=== PATIENT | female | born 1990 | race Caucasian/White ===

== ENCOUNTER → 2020-08-13 | Outpatient (CLI) | payer BC ==
[~2020-08-13] MED LIST: ACHD5005 PO; CEPH500C PO; CYCL10TA9 PO; IBP600T1 PO; METR500T PO; PREN-115 PO; SERT50TA PO
[2020-08-13 16:48] LABS: BASOPHILS % (AUTO) 0 % (0-10); EOSINOPHILS # (AUTO) 0.1 10^3/uL (0.0-0.3); EOSINOPHILS % (AUTO) 1 % (0-10); HEMATOCRIT 33 % (35-52); HEMOGLOBIN 11.3 g/dL (11.5-16.0); LYMPHOCYTES # (AUTO) 1.9 10^3/uL (1.0-4.0); LYMPHOCYTES % (AUTO) 12 % (12-44); MEAN CORPUSCULAR HEMOGLOBIN 31 pg (25-34); MEAN CORPUSCULAR HGB CONC 34 g/dL (32-36); MEAN CORPUSCULAR VOLUME 91 fL (80-99); MEAN PLATELET VOLUME 9.5 fL (9.0-12.2); MONOCYTES # (AUTO) 1.2 10^3/uL (0.0-1.0); MONOCYTES % (AUTO) 8 % (0-12); NEUTROPHILS % (AUTO) 78 % (42-75); PLATELET COUNT 280 10^3/uL (130-400); WHITE BLOOD COUNT 15.4 10^3/uL (4.3-11.0)
[2020-08-13 17:03] LABS: ALBUMIN 3.4 GM/DL (3.2-4.5); CHLORIDE 103 MMOL/L (98-107); POTASSIUM 3.8 MMOL/L (3.6-5.0); SODIUM 133 MMOL/L (135-145)
[2020-08-13 17:05] LABS: CALCIUM 9.4 MG/DL (8.5-10.1)
[2020-08-13 17:06] LABS: GLUCOSE 79 MG/DL (70-105); TOTAL PROTEIN 6.7 GM/DL (6.4-8.2)
[2020-08-13 17:07] LABS: CARBON DIOXIDE 20 MMOL/L (21-32)
[2020-08-13 17:08] LABS: BILIRUBIN,TOTAL 0.2 MG/DL (0.1-1.0)
[2020-08-13 17:09] LABS: ALKALINE PHOSPHATASE 91 U/L (40-136); GFR ESTIMATED > 60
[2020-08-13 17:10] LABS: BUN/CREATININE RATIO 12
[2020-08-13 17:12] LABS: ALANINE AMINOTRANSFERASE 8 U/L (0-55); URIC ACID 4.7 MG/DL (2.6-7.2)
[2020-08-13 17:20] LABS: BAND NEUTROPHILS 3 %; BASOPHILS % (MANUAL) 0 %; EOSINOPHILS % (MANUAL) 0 %; LYMPHOCYTES % (MANUAL) 11 %; MONOCYTES % (MANUAL) 4 %; NEUTROPHILS % (MANUAL) 82 %
[2020-08-13 17:36] LABS: URINE CREATININE FOR RATIO 39 MG/DL (30-125); URINE PROTEIN FOR RATIO ONLY < 6 MG/DL (6-12)
== END ==
LOC: LAB 16:26
PROVIDERS: ATTEND Family Medicine
DX: O16.3 Unspecified maternal hypertension, third trimester (principal); Z3A.00 Weeks of gestation of pregnancy not specified
CPT/HCPCS: 36415; 80053; 82570; 83615; 84156; 84550; 85007; 85027

== ENCOUNTER 2020-08-21 17:57 | Inpatient (IN) | payer BC ==
[~2020-08-21] VITALS: Ht 180.3 cm; Wt 123.4 kg
--- NOTE | 2020-08-21 18:02 | NUR ---
JOSTIN FRAGOSO presented to unit via ambulation from ED, accompanied by , with c/o INDUCTION. Pt. weighed, gowned, voided, and to bed. EFHM and TOCO applied, VS taken. Pt. oriented to bed controls, call light, TV, heat, and A/C controls.
[2020-08-21 18:20] VITALS: BP 139/79
[2020-08-21] MEDS ORDERED: MINERAL OIL CONCENTRATE 99.9% 15 ML UDC TOP PRN (18:30)
--- NOTE | 2020-08-21 18:44 | NUR ---
admission paperwork completed.
[2020-08-21] MEDS: D5 LR IV SOLUTION 1,000 ML IV SCH (18:52)
[2020-08-21 19:02] LABS: BASOPHILS % (AUTO) 0 % (0-10); EOSINOPHILS # (AUTO) 0.1 10^3/uL (0.0-0.3); EOSINOPHILS % (AUTO) 1 % (0-10); HEMATOCRIT 34 % (35-52); HEMOGLOBIN 11.5 g/dL (11.5-16.0); LYMPHOCYTES # (AUTO) 1.7 10^3/uL (1.0-4.0); LYMPHOCYTES % (AUTO) 12 % (12-44); MEAN CORPUSCULAR HEMOGLOBIN 31 pg (25-34); MEAN CORPUSCULAR HGB CONC 34 g/dL (32-36); MEAN CORPUSCULAR VOLUME 91 fL (80-99); MEAN PLATELET VOLUME 9.6 fL (9.0-12.2); MONOCYTES # (AUTO) 1.2 10^3/uL (0.0-1.0); MONOCYTES % (AUTO) 8 % (0-12); NEUTROPHILS # (AUTO) 11.7 10^3/uL (1.8-7.8); NEUTROPHILS % (AUTO) 78 % (42-75); PLATELET COUNT 292 10^3/uL (130-400); WHITE BLOOD COUNT 14.9 10^3/uL (4.3-11.0)
[2020-08-21 19:29] LABS: BAND NEUTROPHILS 1 %; LYMPHOCYTES % (MANUAL) 15 %; MONOCYTES % (MANUAL) 6 %; NEUTROPHILS % (MANUAL) 78 %
[2020-08-21 19:30] VITALS: BP 108/63
[2020-08-21 19:31] LABS: RBC MORPH NORMAL
[2020-08-21] MEDS ORDERED: LACTATED RINGERS 1,000 ML IV SCH (19:55)
[2020-08-21 20:00] VITALS: BP 128/72
[2020-08-21] MEDS ORDERED: MISOPROSTOL 100 MCG (CYTOTEC) TAB PO NR (20:00)
[2020-08-21 21:15] VITALS: BP 134/65
[2020-08-21 22:00] VITALS: BP 127/74
[2020-08-21] MEDS ORDERED: CATHETER FLUSH 10 ML SYR IV SCH (22:00)
[2020-08-21 23:00] VITALS: BP 120/70
[2020-08-22] VITALS (57 sets, daily range): BP systolic 97–163; BP diastolic 53–106
[2020-08-22] MEDS ORDERED: MISOPROSTOL 100 MCG (CYTOTEC) TAB PO SCH
[2020-08-22] MEDS: D5 LR IV SOLUTION 1,000 ML IV SCH ×2 (02:52→11:10)
[2020-08-22] MEDS ORDERED: OXYTOCIN PRE-MIX DRIP 500 ML IV SCH ×2 (07:15→16:00)
--- NOTE | 2020-08-22 08:12 | NUR ---
called to check on pt. update given.
--- NOTE | 2020-08-22 08:40 | NUR ---
EVANGELIST Kyle [facility] Marylin, SRNA here for epidural placement. Procedure explained, consent reviewed and signed by anesthesia. Questions answered to patient's satisfaction. Time out taken to verify correct patient/procedure. 0901- Patient up to side of bed, assisted into sitting position. Betadine prep done x3 and sterile drape applied. 0909- Local done, see anesthesia record. 0918-Test dose given, see anesthesia record for drug and dosage. Epidural catheter secured in place. Epidural placement complete. 0922-Assisted back into bed, monitors adjusted. Epidural dosed, see anesthesia record. Epidural of Sufenta/Fentanyl @12cc/hr stated per pump. Patient tolerated procedure well.
[2020-08-22] MEDS ORDERED: fentaNYL 2 mcg/ml BUPIVA 0.125 100 ML ONE (08:51)
[2020-08-22] MEDS ORDERED: fentaNYL INJECTION 100 MCG/2 ML AMP ONE (08:54)
[2020-08-22] MEDS ORDERED: BUPIVACAINE 0.25% 30 ML (SENSORCAINE) VIAL ONE (08:54)
[2020-08-22] MEDS ORDERED: EPIDURAL (fentaNYL 2 MCG/ML BUPIVA 0.125%)100 ML BAG EPI PRN (10:00)
[2020-08-22] MEDS ORDERED: LACTATED RINGERS 1,000 ML IV SCH (10:00)
[2020-08-22] MEDS ORDERED: METOCLOPRAMIDE INJ 10 MG/2 ML (REGLAN) IV PRN (10:00)
[2020-08-22] MEDS ORDERED: NALOXONE 0.4 MG/ML 1 ML (NARCAN) VIAL IV PRN ×2 (10:00)
[2020-08-22] MEDS ORDERED: diphenhydrAMINE 50 MG/ML INJ (BENADRYL) IV PRN (10:00)
[2020-08-22] MEDS ORDERED: ONDANSETRON 4 MG/2 ML (SDV) Z0FRAN IV PRN (10:00)
--- NOTE | 2020-08-22 15:06 | NUR ---
was called with SVE update.
[2020-08-22] MEDS ORDERED: LIDOCAINE/EPI 2% 1:200,00 (XYLOCAINE) 10 ML VIAL ONE (15:09)
--- NOTE | 2020-08-22 15:51 | OB Labor & Delivery Record ---
Vag Delivery Note Vag Delivery Note Date of Delivery: 08/22/20 Preoperative Diagnosis: Sofía Mccartney is a (29 /Para / , Gestational Age (wks)38with [] Postoperative Diagnosis: Same Surgeon: MAHI WHARTON Transit Specialist: [] Anesthesia: [] Delivery Type: [] Findings: [] Viable [] , apgars [], weight [] Lacerations: Intact placenta with 3 vessel cord. No nuchal cord, body cord or shoulder dystocia Cytotec 800 mcg placed for hemorrhage prophylaxis Estimated Blood Loss: [] ml Complications: None Condition: Stable Description of Procedure: The patient is a 29 year old female who presented []. She was admitted and informed consent was obtained. Her labor course was remarkable for [] She progressed to complete dilatation and began to push. She was then set up for delivery. The infant's head was delivered atraumatically in the [] position. The shoulders and remainder of the infant's body were then delivered without difficulty. Upon delivery, the head was held below the level of the perineum and the mouth and nares were bulb suctioned. The cord was doubly clamped and cut and the infant was handed off to the pediatric staff. An intact placenta with 3-vessel cord delivered via Taran and there was found to be minimal bleeding.~ Vigorous fundal massage was performed and the fundus was found to be firm. IV oxytocin was given. Examination of the vagina and perineum revealed a [] laceration repaired in the usual fashion with 3-0 vicryl suture. Following the repair, sponge, instrument and needle counts were correct. Mom and baby were both in stable condition in the labor suite. Vitals - Labs Vital Signs - I&O Vital Signs Date Time Temp Pulse Resp B/P (MAP) Pulse Ox O2 Delivery O2 Flow Rate FiO2 08/22/20 14:15 93 18 143/77 (99) 97 Room Air 08/22/20 14:00 91 18 124/74 (91) 97 Room Air 08/22/20 13:45 89 18 120/72 (88) 97 Room Air 08/22/20 13:30 94 18 120/69 (86) 97 Room Air 08/22/20 13:15 99 18 115/59 (77) 97 Room Air 08/22/20 13:00 97 18 113/57 (75) 97 Room Air 08/22/20 12:45 92 18 114/60 (78) 96 Room Air 08/22/20 12:30 93 18 119/63 (81) 97 Room Air 08/22/20 12:15 36.7 88 18 122/58 (79) 98 Room Air 08/22/20 12:00 90 18 110/62 (78) 97 Room Air 08/22/20 11:45 87 18 119/68 (85) 97 Room Air 08/22/20 11:30 93 18 116/58 (77) 98 Room Air 08/22/20 11:15 89 18 124/64 (84) 97 Room Air 08/22/20 11:00 92 18 109/70 (83) 96 Room Air 08/22/20 10:45 90 18 119/73 (88) 96 Room Air 08/22/20 10:30 95 18 121/67 (85) 96 Room Air 08/22/20 10:15 91 18 116/56 (76) 96 Room Air 08/22/20 10:00 93 18 121/71 (88) 97 Room Air 08/22/20 09:45 94 18 163/106 (125) 97 Room Air 08/22/20 09:40 107 18 134/80 (98) 96 Room Air 08/22/20 09:35 107 18 127/66 (86) 96 Room Air 08/22/20 09:30 101 18 128/72 (90) 97 Room Air 08/22/20 09:25 107 18 129/65 (86) 97 Room Air 08/22/20 09:20 112 18 131/72 (91) 98 Room Air 08/22/20 09:15 102 18 128/72 (90) 97 Room Air 08/22/20 09:10 97 18 126/69 (88) 98 Room Air 08/22/20 09:05 102 18 128/73 (91) 98 Room Air 08/22/20 09:00 92 18 118/66 (83) Room Air 08/22/20 08:45 96 18 131/66 (87) Room Air 08/22/20 08:30 36.8 89 18 122/65 (84) Room Air 08/22/20 08:15 18 Room Air 08/22/20 08:00 83 18 125/70 (88) Room Air 08/22/20 07:40 83 18 126/82 (97) Room Air 08/22/20 07:25 86 18 122/86 (98) Room Air 08/22/20 07:00 36.5 86 18 113/70 (84) Room Air 08/22/20 06:00 85 18 137/72 (93) Room Air 08/22/20 05:00 80 18 108/57 (74) Room Air 08/22/20 04:00 80 18 133/88 (103) Room Air 08/22/20 03:00 85 18 133/88 (103) Room Air 08/22/20 02:00 36.6 81 18 134/74 (94) Room Air 08/22/20 01:00 84 18 124/75 (91) Room Air 08/22/20 00:00 93 18 133/76 (95) Room Air 08/21/20 23:00 84 18 120/70 (87) 08/21/20 22:00 36.5 91 18 127/74 (91) 08/21/20 21:15 87 18 134/65 (88) 08/21/20 20:00 94 18 128/72 (90) 08/21/20 19:30 94 18 108/63 (78) 08/21/20 18:20 36.2 119 18 97 Room Air I & O 08/22/20 07:00 Intake Total 2000 ml Balance 2000 ml Labs Laboratory Tests 08/21/20 18:50: White Blood Count 14.9H, Red Blood Count 3.74L, Hemoglobin 11.5, Hematocrit 34L, Mean Corpuscular Volume 91, Mean Corpuscular Hemoglobin 31, Mean Corpuscular Hemoglobin Concent 34, Red Cell Distribution Width 13.6, Platelet Count 292, Mean Platelet Volume 9.6, Immature Granulocyte % (Auto) 1, Neutrophils (%) (Auto) 78H, Lymphocytes (%) (Auto) 12, Monocytes (%) (Auto) 8, Eosinophils (%) (Auto) 1, Basophils (%) (Auto) 0, Neutrophils # (Auto) 11.7H, Lymphocytes # (Auto) 1.7, Monocytes # (Auto) 1.2H, Eosinophils # (Auto) 0.1, Basophils # (Auto) 0.0, Immature Granulocyte # (Auto) 0.2H, Neutrophils % (Manual) 78, Lymphocytes % (Manual) 15, Monocytes % (Manual) 6, Band Neutrophils 1, Blood Morphology Comment NORMAL 08/21/20 20:00: Coronavirus (COVID-19)(PCR) Negative MAHI WHARTON MD Aug 22, 2020 15:51
--- NOTE | 2020-08-22 15:51 | History & Physical-OB ---
OB - Chief Complaint & HPI Date/Time Date of Admission: Date of Admission: Aug 21, 2020 at 20:20 Chief Complaint/History Expected Date of Delivery: Aug 30, 2020 Gestational Age in Weeks: 38 Gestational Age in Days: 6 Allergies and Home Medications Allergies Coded Allergies: No Known Drug Allergies (Unverified , 10/18/12) Home Medications Cyclobenzaprine Hcl 10 Mg Tablet, 10 MG PO TID, (Reported) Hydrocodone Bit/Acetaminophen 1 Tab Tablet, 1 TAB PO Q6H PRN, (Reported) Ibuprofen 600 Mg Tab, 600 MG PO Q6H PRN, (Reported) OB - History Obstetrical History Hx Termination: No Delivery History Hx Section: No Hx Vaginal Delivery Post C-Sec: No Hx Blood Disorders: No Adverse Rxn to Tranfusion: No Social History/Family History HIV/AIDS: No Recent Infectious Disease Expo: No Sexually Transmitted Disease: No Alcohol Use: Denies Use Recreational Drug Use: No Immunizations Hepatitis A: No Hepatitis B: No Tetanus Booster (TDap): Less than 5yrs Date of Influenza Vaccine: Jun 21, 2020 OB - Admission Exam Physical Exam Vitals: Vital Signs 08/22/20 08/22/20 12:15 14:15 Temp 36.7 Pulse 93 Resp 18 B/P (MAP) 143/77 (99) Pulse Ox 97 O2 Delivery Room Air Labs Laboratory Tests Test 08/21/20 18:50 08/21/20 20:00 Range/Units White Blood Count 14.9 H 4.3-11.0 10^3/uL Red Blood Count 3.74 L 3.80-5.11 10^6/uL Hemoglobin 11.5 11.5-16.0 g/dL Hematocrit 34 L 35-52 % Mean Corpuscular Volume 91 80-99 fL Mean Corpuscular Hemoglobin 31 25-34 pg Mean Corpuscular Hemoglobin Concent 34 32-36 g/dL Red Cell Distribution Width 13.6 10.0-14.5 % Platelet Count 292 130-400 10^3/uL Mean Platelet Volume 9.6 9.0-12.2 fL Immature Granulocyte % (Auto) 1 % Neutrophils (%) (Auto) 78 H 42-75 % Lymphocytes (%) (Auto) 12 12-44 % Monocytes (%) (Auto) 8 0-12 % Eosinophils (%) (Auto) 1 0-10 % Basophils (%) (Auto) 0 0-10 % Neutrophils # (Auto) 11.7 H 1.8-7.8 10^3/uL Lymphocytes # (Auto) 1.7 1.0-4.0 10^3/uL Monocytes # (Auto) 1.2 H 0.0-1.0 10^3/uL Eosinophils # (Auto) 0.1 0.0-0.3 10^3/uL Basophils # (Auto) 0.0 0.0-0.1 10^3/uL Immature Granulocyte # (Auto) 0.2 H 0.0-0.1 10^3/uL Neutrophils % (Manual) 78 % Lymphocytes % (Manual) 15 % Monocytes % (Manual) 6 % Band Neutrophils 1 % Blood Morphology Comment NORMAL Coronavirus (COVID-19)(PCR) Negative Negative MAHI WHARTON MD Aug 22, 2020 15:51
[2020-08-22] MEDS ORDERED: BENZOCAINE/MENTHOL (DERMOPLAST) 60 ML CAN TP PRN (16:00)
[2020-08-22] MEDS ORDERED: MEASLES,MUMPS,RUBELLA 1 EA INJ SQ ONE (16:00)
[2020-08-22] MEDS ORDERED: WITCH HAZEL(TUCKS) 40 EA JAR TOP PRN (16:00)
[2020-08-22] MEDS ORDERED: TETANUS,DIPTH,PERTUSS P/F (BOOSTRIX) 0.5 ML VIAL IM ONE (16:00)
[2020-08-22] MEDS: ACETAMINOPHEN 500 MG TAB (TYLENOL) PO SCH ×2 (16:37→21:58)
[2020-08-22] MEDS: IBUPROFEN 600 MG (MOTRIN) TAB PO SCH ×2 (16:37→21:58)
--- NOTE | 2020-08-22 19:09 | NUR ---
report given to JAY Ellis.
--- NOTE | 2020-08-22 20:00 | NUR ---
Pt up to the bathroom, positive void. moderate rubra. Pad changed. Pt assisted back to bed. Assessment completed. Pt denies any needs at this time. Will continue to monitor.
[2020-08-22] MEDS: DOCUSATE SODIUM 100 MG (COLACE) CAP PO SCH (20:03)
[2020-08-22] MEDS ORDERED: CATHETER FLUSH 10 ML SYR IV SCH (22:00)
[2020-08-23 02:30] VITALS: BP 133/76
[2020-08-23] MEDS: IBUPROFEN 600 MG (MOTRIN) TAB PO SCH ×3 (02:51→15:37)
[2020-08-23] MEDS: ACETAMINOPHEN 500 MG TAB (TYLENOL) PO SCH ×3 (02:51→15:38)
--- NOTE | 2020-08-23 07:31 | Anesthesia-Regional Post-Op ---
Regional Patient Condition Mental Status: Alert, Oriented x3 Circulation: Same as Pre-Op Headache: Absent Sensation: Full Recovery Motor Block: Absent Post Op Complications Complications None Follow Up Care/Instructions Patient Instructions None needed. Anesthesia/Patient Condition Patient is doing well, no complaints, stable vital signs, no apparent adverse anesthesia problems. No complications reported per nursing. CYNDY AREVALO CRNA Aug 23, 2020 07:31
[2020-08-23 08:00] LABS: BASOPHILS % (AUTO) 0 % (0-10); EOSINOPHILS # (AUTO) 0.2 10^3/uL (0.0-0.3); EOSINOPHILS % (AUTO) 2 % (0-10); HEMATOCRIT 31 % (35-52); HEMOGLOBIN 10.3 g/dL (11.5-16.0); LYMPHOCYTES # (AUTO) 1.8 10^3/uL (1.0-4.0); LYMPHOCYTES % (AUTO) 13 % (12-44); MEAN CORPUSCULAR HEMOGLOBIN 30 pg (25-34); MEAN CORPUSCULAR HGB CONC 33 g/dL (32-36); MEAN CORPUSCULAR VOLUME 93 fL (80-99); MEAN PLATELET VOLUME 9.4 fL (9.0-12.2); MONOCYTES # (AUTO) 1.2 10^3/uL (0.0-1.0); MONOCYTES % (AUTO) 9 % (0-12); NEUTROPHILS # (AUTO) 10.2 10^3/uL (1.8-7.8); NEUTROPHILS % (AUTO) 75 % (42-75); PLATELET COUNT 239 10^3/uL (130-400); WHITE BLOOD COUNT 13.6 10^3/uL (4.3-11.0)
--- NOTE | 2020-08-23 08:15 | Discharge Summary ---
Diagnosis/Chief Complaint Date of Admission Aug 21, 2020 at 20:20 Date of Discharge August 23, 2020 Admission Diagnosis Admission Diagnosis 1. Intrauterine at 38 weeks 6 days gestation Discharge Diagnosis 1. Intrauterine at 38 weeks 6 days gestation Chief Complaint/HPI Chief Complaint/HPI 29-year-old G2L2 initially presented during the evening of August 21, 2020 for labor. She received her care through [facility] and Dr. Vasques. Her care was essentially unremarkable. Her EDC was August 29, 2020. Discharge Summary-OBS Procedures 1. Epidural per anesthesia 2. Spontaneous vaginal deliveryDrKarla Vasques Discharge Physical Examination Allergies: Coded Allergies: No Known Drug Allergies (Unverified , 10/18/12) Vitals & I&Os Intake and Output 08/23/20 00:00 Intake Total 1500 ml Balance 1500 ml Vital Sign - Last 12Hours Date Time Temp Pulse Resp B/P (MAP) Pulse Ox O2 Delivery O2 Flow Rate FiO2 08/23/20 02:30 82 18 133/76 (95) Room Air 08/22/20 22:21 36.5 08/22/20 15:00 97 General Appearance: No Acute Distress Respiratory: Clear to Auscultation Cardiovascular: Regular Rate Abdominal: Soft (with uterus firm) Hospital Course Was the Problem List Reviewed?: Yes patient ultimately delivered spontaneous vaginal during the afternoon of August 22, 2020. Patient delivered a term viable female. See labor and delivery note for full details. Following delivery patient underwent routine care orders. She was noted to have no complications during the remainder of hospital stay. She tolerated regular diet. She denied any chest pain or shortness of breath. Her hemoglobin on admission was 11.5. Labs Laboratory Tests 08/23/20 07:49: White Blood Count 13.6H, Red Blood Count 3.39L, Hemoglobin 10.3L, Hematocrit 31L , Mean Corpuscular Volume 93, Mean Corpuscular Hemoglobin 30, Mean Corpuscular Hemoglobin Concent 33, Red Cell Distribution Width 13.8, Platelet Count 239, Mean Platelet Volume 9.4, Immature Granulocyte % (Auto) 1, Neutrophils (%) (Auto) 75, Lymphocytes (%) (Auto) 13, Monocytes (%) (Auto) 9, Eosinophils (%) (Auto) 2, Basophils (%) (Auto) 0, Neutrophils # (Auto) 10.2H, Lymphocytes # (Auto) 1.8, Monocytes # (Auto) 1.2H, Eosinophils # (Auto) 0.2, Basophils # (Auto) 0.0, Immature Granulocyte # (Auto) 0.1 Discharge Instructions to patient/family Please see electronic discharge instructions given to patient. Discharge Medications Reviewed and agree with Discharge Medication list on patient's Discharge Instruction sheet Clinical Quality Measures DVT/VTE Risk/Contraindication: Risk Factor Score Per Nursin RFS Level Per Nursing on Admit: 2=Moderate NILS SMART MD Aug 23, 2020 08:15
--- NOTE | 2020-08-23 08:17 | Discharge Inst-Women's Service ---
Discharge Inst-Women's Serv Depart Medication/Instructions New, Converted or Re-Newed RX: Other Instructions May take 3 ibuprofen for a total of 600 mg every 6 hours as needed for cramps Problems Reviewed?: Yes Consults/Follow Up Additional Follow Up: Yes (with Dr. Vasques in 6 weeks) Activity Activity: Activity as Tolerated Driving Instructions: No Driving for 1 Week NO SMOKING: NO SMOKING Nothing Inside Vagina: No Raymer (for 6 weeks) Diet Discharge Diet: Regular Diet Return to The Hospital For: as below Symptoms to Report to : Bleeding Excessive, Fever Over 101 Degrees F, Vaginal Discharge Foul For Any Problems or Questions: Contact Your Physician NILS SMART MD Aug 23, 2020 08:17
[2020-08-23 09:11] VITALS: BP 137/87
[2020-08-23] MEDS: DOCUSATE SODIUM 100 MG (COLACE) CAP PO SCH (09:13)
[2020-08-23 12:40] VITALS: BP 124/85
--- NOTE | 2020-08-23 16:15 | NUR ---
Discharge instructions given per Oilvier Zhou RN and copy provided to pt. Pt notified of follow up. Pt verbalizes understanding of instructions and signs to verify. Pt denies questions or concerns at this time.
--- NOTE | 2020-08-23 17:35 | NUR ---
Pt ambulates off unit to private vehicle accompanied by S.O., , and WS staff with all personal belongings. No s/s of distress noted.
== END 2020-08-23 17:35 | disposition home or self-care (01) | DRG 807 ==
LOC: WSo 17:57 → LDRP 18:15 → WSo 20:19 → LDRP 20:20
PROVIDERS: ADMIT Family Medicine; ATTEND Family Medicine
PROC: 10E0XZZ Delivery of Products of Conception, External Approach (ICD-10-PCS; principal; 2020-08-22)
DX: O80 Encounter for full-term uncomplicated delivery (principal); Z37.0 Single live birth; Z3A.38 38 weeks gestation of pregnancy
CPT/HCPCS: 36415; 85007; 85025; 85027; 86850; 86900; 86901; 87635